=== PATIENT | female | born 1940 | race Caucasian/White ===

== ENCOUNTER 2017-03-23 08:57 | Day surgery (SDC) | payer OTHER ==
[2017-03-19 14:30] LABS: Urine RBC None Seen /hpf (0 - 4)
[2017-03-19 14:47] LABS: Basophils # (auto) 0 uL; Basophils % (auto) 0.5 % (0.0-2.0); Eosinophils # (auto) 0.1 uL; Eosinophils % (auto) 0.8 % (0.0-7.0); Hematocrit 42.1 % (36.0-46.0); Hemoglobin 13.9 g/dL (12.2-16.2); Lymphocytes # (auto) 2.6 uL; Lymphocytes % (auto) 36.6 % (10.0-50.0); Mean Corpuscular Hemoglobin 32.5 pg (28.0-32.0); Mean Corpuscular Hgb Conc. 33.1 g/dL (32.0-36.0); Mean Corpuscular Volume 98.2 fL (80.0-100.0); Mean Platelet Volume 8.8 fL (6.9-10.8); Monocytes # (auto) 0.6 uL; Monocytes % (auto) 8.2 % (0.0-12.0); Neutrophils # (auto) 3.8 uL; Neutrophils % (auto) 53.9 % (37.0-80.0); Nucleated Red Blood Cells % 0.1 %; Platelet Count (auto) 176 10^3/uL (140-450); Red Cell Distribution Width 16.2 % (11.8-14.3); White Blood Cell 7.1 10^3/uL (4.4-10.8)
[2017-03-19 14:56] LABS: Urine Bilirubin Negative (Negative); Urine Blood Negative /uL (Negative); Urine Color Yellow (Yellow); Urine Glucose Normal (Normal); Urine Ketone Negative (Negative); Urine Mucus FEW (None Seen); Urine Nitrite Negative (Negative); Urine Squamous Epithelial Cell FEW /hpf (<5); Urine Urobilinogen Normal (Negative); Urine pH 5.5 (5.0-8.0)
[2017-03-19 15:03] LABS: INR 0.99 (0.9-1.15); Partial Thromboplastin Time 24.6 sec (22.64-33.71); Prothrombin Time 10.8 sec (9.37-12.3)
[2017-03-19 15:05] LABS: BUN/Creatinine Ratio 9.8; Calcium 9.3 mg/dL (8.5-10.1); Potassium 4.4 mmol/L (3.5-5.1)
[~2017-03-23] VITALS: Ht 167.6 cm; Wt 46.3 kg
[~2017-03-23 08:57] MED LIST: ALPR0.254 PO; ASPI-231 PO; ATOR40TA52 PO; CARV6.2551 PO; IBUP200T76 PO; ISOS60TA24 PO; LYSI500T34 OR; NITR0.4S29 SL; PANT40TA2 PO; RANO1000 PO; TRAM50TA2 PO
[2017-03-23] MEDS ORDERED: NOREPINEPHRINE 8 MG/250ML KIT 250 ML IV SCH (10:20)
[2017-03-23] MEDS ORDERED: ePHEDrine SULFATE 50 MG/ML AMP ONE (11:44)
[2017-03-23] MEDS ORDERED: PHENYLEPHRINE HCL 10 MG/ML VL ONE (11:44)
[2017-03-23] MEDS ORDERED: ETOMIDATE (2MG/ML) 20ML VIAL IV ONE (11:44)
[2017-03-23] MEDS ORDERED: fentaNYL CITRATE 100 MCG/2 ML VL ONE (11:44)
[2017-03-23] MEDS ORDERED: SODIUM CHLORIDE LOCK 10 ML ONE ×2 (11:46→11:48)
[2017-03-23] MEDS ORDERED: ceFAZolin 1GM/50ML 50 ML IV ONE (11:47)
[2017-03-23] MEDS ORDERED: NALOXONE HCL 0.4 MG/ML VIAL IV PRN (13:15)
[2017-03-23] MEDS ORDERED: ONDANSETRON HCL 4 MG/2 ML VIAL IV ONE (13:15)
[2017-03-23] MEDS ORDERED: HYDROmorphone HCL 2 MG/ML VL IV PRN (13:15)
[2017-03-23 14:00] VITALS: BP 149/69
== END 2017-03-23 14:10 | disposition home or self-care (01) ==
LOC: SUR 08:57
PROVIDERS: ATTEND Urology
DX: N13.0 Hydronephrosis with ureteropelvic junction obstruction (principal); D69.6 Thrombocytopenia, unspecified; Z88.5 Allergy status to narcotic agent; I10 Essential (primary) hypertension; I42.9 Cardiomyopathy, unspecified; I63.9 Cerebral infarction, unspecified; Z95.1 Presence of aortocoronary bypass graft; Z95.5 Presence of coronary angioplasty implant and graft; F17.210 Nicotine dependence, cigarettes, uncomplicated; Z88.8 Allergy status to other drugs, medicaments and biological substances; F10.99 Alcohol use, unspecified with unspecified alcohol-induced disorder; Z90.49 Acquired absence of other specified parts of digestive tract; Z90.710 Acquired absence of both cervix and uterus
CPT/HCPCS: 36415; 52332; 74000; 76000; 80048; 81001; 85025; 85610; 85730; 86850; 86900; 86901; 87086; C2617; J0690; J2370; J3010; J7030; J7040

== ENCOUNTER 2020-12-24 14:59 | Inpatient (IN) | payer MEDICARE, OTHER ==
[~2020-12-24] VITALS: Ht 165.1 cm; Wt 53.3 kg
[2020-12-24] MEDS ORDERED: SODIUM CHLORIDE 0.9% 1,000 ML IV ONE ×2 (15:30)
[2020-12-24 15:43] LABS: Basophils # (auto) 0 10 ^3/uL (0-0.2); Eosinophils # (auto) 0 10 ^3/uL (0-0.8); Hemoglobin 8.4 g/dL (12.2-16.2); Lymphocytes # (auto) 1.2 10 ^3/uL (0.4-5.4); Lymphocytes % (auto) 5.8 % (10.0-50.0); Mean Corpuscular Hemoglobin 30.5 pg (28.0-32.0)
[2020-12-24 15:45] LABS: Basophils % (auto) 0.2 % (0.0-2.0); Eosinophils % (auto) 0.2 % (0.0-7.0); Hematocrit 25.7 % (36.0-46.0); Mean Corpuscular Hgb Conc. 32.7 g/dL (32.0-36.0); Mean Corpuscular Volume 93.2 fL (80.0-100.0); Monocytes # (auto) 1.8 10 ^3/uL (0-1.3); Monocytes % (auto) 8.8 % (0.0-12.0); Neutrophils # (auto) 17.1 10 ^3/uL (1.6-8.6); Red Blood Cells 2.76 10^6/uL (4.0-5.20); Red Cell Distribution Width 14.8 % (11.8-14.3); White Blood Cell 20.1 10^3/uL (4.4-10.8)
[2020-12-24 16:00] LABS: Alanine Aminotransferase 15 U/L (13-56); Albumin 1.5 g/dL (3.4-5.0); Anion Gap 5 (5-15); Aspartate Aminotransferase 10 U/L (15-37); BUN/Creatinine Ratio 23.5; Blood Urea Nitrogen 58 mg/dL (7-18); Carbon Dioxide 22 mmol/L (21-32); Chloride 107 mmol/L (98-107); GFR African American 24 mL/min; GFR Non-African American 20 mL/min; Glucose 123 mg/dL (74-106); Potassium 4.7 mmol/L (3.5-5.1); Sodium 134 mmol/L (136-145)
[2020-12-24 16:10] LABS: Alkaline Phosphatase 81 U/L (45-117); Bilirubin, Total 0.5 mg/dL (0.2-1.0)
[2020-12-24] MEDS ORDERED: NOREPINEPHRINE 8 MG/250ML KIT 250 ML IV SCH (16:45)
[2020-12-24] MEDS ORDERED: NOREPINEPHRINE 8 MG/250ML KIT 250 ML IV ONE (16:46)
[2020-12-24] MEDS ORDERED: cefTRIAXone 1GM/50ML D5W 50 ML IV ONE (18:00)
[2020-12-24] MEDS ORDERED: MORPHINE SULFATE INJECTION 2 MG/ML SYRG IV PRN ×3 (18:30→22:30)
[2020-12-24] MEDS ORDERED: NITROGLYCERIN 0.4 MG SL TAB SL PRN ×2 (18:30→22:30)
[2020-12-24 19:35] LABS: Lactic Acid w/Reflex 2.1 mmol/L (0.4-2.0)
[2020-12-24] MEDS ORDERED: LACTATED RINGER'S 1,000 ML IV ONE (22:15)
[2020-12-24] MEDS ORDERED: ALBUMIN 25% 100 ML IV ONE (22:15)
[2020-12-24] MEDS ORDERED: ALUM & MAG HYDROX-SIMETH LIQ(MAALOX) 30 ML PO PRN (22:30)
[2020-12-24] MEDS ORDERED: DOCUSATE SOD 100 MG CAP PO PRN (22:30)
[2020-12-24] MEDS ORDERED: NITROGLYCERIN 0.4 MG SL TAB SL SCH (22:30)
[2020-12-24] MEDS ORDERED: METOCLOPRAMIDE HCL 5MG/ml INJ 2ml VIAL IV PRN (22:30)
[2020-12-24] MEDS ORDERED: LORazepam 0.5 MG TAB PO PRN (22:30)
[2020-12-24] MEDS ORDERED: PANTOPRAZOLE 40 MG/10 ML VIAL INJ IV ONE (22:30)
[2020-12-24] MEDS ORDERED: CEFEPIME 1 GM in SODIUM CHL 0.9% 50 ML IV ONE (22:30)
[2020-12-24 23:12] LABS: Magnesium 2.2 mg/dL (1.6-2.6); Phosphorus 3.2 mg/dL (2.5-4.90)
[2020-12-24 23:36] LABS: INR 1.18 (0.9-1.15); Partial Thromboplastin Time 25.4 sec (23.6-33.0)
[2020-12-24] MEDS: SODIUM CHLORIDE 0.9% 1,000 ML IV SCH (23:59)
[2020-12-25 00:07] LABS: Urine Bacteria NONE SEEN /hpf (None Seen); Urine Blood 1+ /uL (Negative); Urine Specific Gravity 1.016 (1.001-1.035); Urine WBC 1375 /hpf (0 - 5); Urine WBC Clumps PRESENT /hpf (None Seen)
[2020-12-25 00:18] LABS: Amphetamine Screen, Urine NEGATIVE (NEGATIVE); Barbiturate Scree,Urine NEGATIVE (NEGATIVE); Benzodiazephine Screen, Urine NEGATIVE (NEGATIVE); Cannabinoid Screen, Urine NEGATIVE (NEGATIVE); Cocaine Screen, Urine NEGATIVE (NEGATIVE); Opiate Scree,Urine NEGATIVE (NEGATIVE); Phencyclidine Screen, Urine NEGATIVE (NEGATIVE)
[2020-12-25] MEDS: hydrALAZINE HCL 10 MG TAB PO SCH ×3 (06:00→23:08)
[2020-12-25] MEDS: ALBUMIN 25% 50 ML IV SCH ×3 (06:16→21:56)
[2020-12-25] MEDS: CEFEPIME 1 GM in SODIUM CHL 0.9% 50 ML IV SCH ×2 (07:41→14:26)
[2020-12-25] MEDS: ALPRAZolam 0.25 MG TAB PO SCH ×3 (08:05→21:59)
[2020-12-25] MEDS: ASPirin 81 mg TAB PO SCH (10:01)
[2020-12-25] MEDS: ISOSORBIDE MONONITRATE ER 60 MG TAB PO SCH (10:02)
[2020-12-25] MEDS: CARVEDILOL 3.125 MG TAB PO SCH ×2 (10:02→21:58)
[2020-12-25] MEDS: FLUoxetine HCL 20 MG CAP PO SCH (10:02)
[2020-12-25] MEDS: PANTOPRAZOLE 40 MG/10 ML VIAL INJ IV SCH (10:03)
[2020-12-25] MEDS ORDERED: OMNIPAQUE ORAL SOLN 500ml 12mg/ml PO ONE (12:53)
[2020-12-25] MEDS: SODIUM CHLORIDE 0.9% 1,000 ML IV SCH (15:38)
[2020-12-25 18:12] VITALS: BP 108/51
[2020-12-25 18:52] VITALS: BP 108/51
[2020-12-25 21:40] LABS: Cholesterol 66 mg/dL (< 200); Triglycerides 56 mg/dL (< 150)
[2020-12-25 21:42] LABS: HDL Cholesterol 26 mg/dL (40-59); LDL Cholesterol 34 mg/dL (< 100)
[2020-12-25 21:53] LABS: Folate (Folic Acid) > 24.00 ng/mL (5.38-24)
[2020-12-25] MEDS: ATORVASTATIN 20 MG TAB PO SCH ×2 (21:55→22:00)
[2020-12-25] MEDS: DOCUSATE SOD 100 MG CAP PO SCH (21:58)
[2020-12-25 22:00] VITALS: BP 116/59
[2020-12-25] MEDS ORDERED: ATORVASTATIN 20 MG TAB PO SCH (22:00)
[2020-12-26] MEDS: SODIUM CHLORIDE 0.9% 1,000 ML IV SCH (04:15)
[2020-12-26 05:00] VITALS: BP 116/54
[2020-12-26] MEDS: ALPRAZolam 0.25 MG TAB PO SCH (05:30)
[2020-12-26] MEDS: hydrALAZINE HCL 10 MG TAB PO SCH (05:30)
[2020-12-26 06:12] LABS: Basophils # (auto) 0 10 ^3/uL (0-0.2); Eosinophils # (auto) 0.1 10 ^3/uL (0-0.8); Eosinophils % (auto) 0.4 % (0.0-7.0); Lymphocytes # (auto) 1.6 10 ^3/uL (0.4-5.4); Monocytes # (auto) 1.7 10 ^3/uL (0-1.3); Red Cell Distribution Width 14.7 % (11.8-14.3)
[2020-12-26 06:15] LABS: Basophils % (auto) 0.2 % (0.0-2.0); Hematocrit 24.1 % (36.0-46.0); Lymphocytes % (auto) 10.1 % (10.0-50.0); Mean Corpuscular Hemoglobin 31.3 pg (28.0-32.0); Mean Corpuscular Hgb Conc. 33.3 g/dL (32.0-36.0); Monocytes % (auto) 10.6 % (0.0-12.0); Neutrophils # (auto) 12.2 10 ^3/uL (1.6-8.6); Neutrophils % (auto) 78.7 % (37.0-80.0); Red Blood Cells 2.57 10^6/uL (4.0-5.20); White Blood Cell 15.5 10^3/uL (4.4-10.8)
[2020-12-26 06:53] LABS: Calcium 8.4 mg/dL (8.5-10.1); Potassium 5.5 mmol/L (3.5-5.1)
[2020-12-26 06:56] LABS: BUN/Creatinine Ratio 22.2
[2020-12-26] MEDS ORDERED: DEXTROSE (50%) 50ML SYRG IV ONE ×2 (08:15→16:30)
[2020-12-26 09:00] VITALS: BP 114/58
[2020-12-26] MEDS ORDERED: cefTRIAXone 1GM/50ML D5W 50 ML IV SCH (09:00)
[2020-12-26] MEDS: PANTOPRAZOLE 40 MG/10 ML VIAL INJ IV SCH (09:55)
[2020-12-26] MEDS: FLUoxetine HCL 20 MG CAP PO SCH (09:59)
[2020-12-26] MEDS: ISOSORBIDE MONONITRATE ER 60 MG TAB PO SCH (09:59)
[2020-12-26] MEDS: ASPirin 81 mg TAB PO SCH (10:00)
[2020-12-26] MEDS: CARVEDILOL 3.125 MG TAB PO SCH (10:00)
[2020-12-26] MEDS: DOCUSATE SOD 100 MG CAP PO SCH ×2 (10:00→20:27)
[2020-12-26] MEDS: ACCU-CHEK COMFORT CURVE STRIP VI SCH ×4 (10:01→21:25)
[2020-12-26] MEDS ORDERED: CALCIUM GLUC 1,000mg/50ml-NS 50 ML IV ONE (10:30)
[2020-12-26] MEDS ORDERED: ERTAPENEM SOD INJ 0.5 GM in SODIUM CHL 0.9% 50 ML IV ONE (10:30)
[2020-12-26] MEDS ORDERED: METOCLOPRAMIDE HCL 5MG/ml INJ 2ml VIAL IV PRN (10:30)
[2020-12-26] MEDS: D5W/SOD CHL 0.45% 1,000 ML IV SCH ×2 (12:18→23:50)
[2020-12-26 13:00] VITALS: BP 115/51
[2020-12-26] MEDS ORDERED: CEFEPIME 2 GM in SODIUM CHL 0.9% 50 ML IV SCH (14:00)
[2020-12-26 16:05] LABS: BUN/Creatinine Ratio 18.9
[2020-12-26 16:12] LABS: Potassium 5.7 mmol/L (3.5-5.1)
[2020-12-26] MEDS ORDERED: SODIUM BICARBONATE 8.4 % INJ 50ML VIAL IV ONE (16:30)
[2020-12-26] MEDS ORDERED: SODIUM ZIRCONIUM CYCL 10 GM PAK PO ONE (16:30)
[2020-12-26] MEDS ORDERED: InsuLIN REG 1unit/0.01ml Soln (100units/ml) IV ONE (16:30)
[2020-12-26 17:00] VITALS: BP 118/76
[2020-12-26] MEDS: ACETAMINOPHEN 325 MG TAB PO PRN (18:57)
[2020-12-26] MEDS: ATORVASTATIN 20 MG TAB PO SCH (21:25)
[2020-12-26 22:00] VITALS: BP 114/58
[2020-12-26] MEDS: SODIUM ZIRCONIUM CYCL 10 GM PAK PO SCH (23:31)
[2020-12-27] MEDS: ACCU-CHEK COMFORT CURVE STRIP VI SCH ×6 (02:10→21:45)
[2020-12-27 05:00] VITALS: BP 142/56
[2020-12-27] MEDS: SODIUM ZIRCONIUM CYCL 10 GM PAK PO SCH (05:46)
[2020-12-27 06:25] LABS: Basophils # (auto) 0 10 ^3/uL (0-0.2); Basophils % (auto) 0.2 % (0.0-2.0); Eosinophils # (auto) 0.1 10 ^3/uL (0-0.8); Eosinophils % (auto) 0.4 % (0.0-7.0); Hematocrit 26.8 % (36.0-46.0); Hemoglobin 8.8 g/dL (12.2-16.2); Lymphocytes # (auto) 1.6 10 ^3/uL (0.4-5.4); Mean Corpuscular Hemoglobin 30.8 pg (28.0-32.0); Mean Corpuscular Hgb Conc. 32.8 g/dL (32.0-36.0); Mean Corpuscular Volume 93.9 fL (80.0-100.0); Monocytes # (auto) 1.6 10 ^3/uL (0-1.3); Monocytes % (auto) 12.1 % (0.0-12.0); Neutrophils # (auto) 10.1 10 ^3/uL (1.6-8.6); Neutrophils % (auto) 75.3 % (37.0-80.0); Red Blood Cells 2.86 10^6/uL (4.0-5.20); White Blood Cell 13.4 10^3/uL (4.4-10.8)
[2020-12-27 06:59] LABS: Potassium 4.5 mmol/L (3.5-5.1)
[2020-12-27 07:07] LABS: Albumin 2.2 g/dL (3.4-5.0); BUN/Creatinine Ratio 17.3; Bilirubin, Total 0.4 mg/dL (0.2-1.0); Calcium 8.8 mg/dL (8.5-10.1); Total Protein 6.5 g/dL (6.4-8.2)
[2020-12-27] MEDS: ASPirin 81 mg TAB PO SCH (10:00)
[2020-12-27] MEDS: DOCUSATE SOD 100 MG CAP PO SCH ×3 (10:00→21:46)
[2020-12-27] MEDS: PANTOPRAZOLE 40 MG/10 ML VIAL INJ IV SCH (10:00)
[2020-12-27] MEDS: ERTAPENEM SOD INJ 0.5 GM in SODIUM CHL 0.9% 50 ML IV SCH (10:00)
[2020-12-27] MEDS ORDERED: FUROSEMIDE 40 MG/4 ML VIAL IV ONE ×2 (10:15)
[2020-12-27] MEDS ORDERED: GASTROGRAFIN 30 ML SOL ONE (10:22)
[2020-12-27] MEDS ORDERED: FUROSEMIDE 40 MG/4 ML VIAL ONE (10:41)
[2020-12-27] MEDS: D5W/SOD CHL 0.45% 1,000 ML IV SCH (12:42)
[2020-12-27] MEDS ORDERED: LACTULOSE 20Gm/30ML SOLN PO ONE (13:00)
[2020-12-27] MEDS: Ensure HIGH Protein Chocolate 8oz Bottle PO SCH (18:00)
[2020-12-27] MEDS: LACTULOSE 20Gm/30ML SOLN PO SCH ×2 (21:41→21:46)
[2020-12-27 21:51] VITALS: BP 135/66
[2020-12-28] MEDS: ACCU-CHEK COMFORT CURVE STRIP VI SCH ×3 (02:49→11:00)
[2020-12-28] MEDS: D5W/SOD CHL 0.45% 1,000 ML IV SCH (02:49)
[2020-12-28] MEDS: ACETAMINOPHEN 325 MG TAB PO PRN (05:10)
[2020-12-28 05:44] VITALS: BP 151/82
[2020-12-28 06:39] LABS: Basophils # (auto) 0 10 ^3/uL (0-0.2); Basophils % (auto) 0.3 % (0.0-2.0); Eosinophils # (auto) 0.1 10 ^3/uL (0-0.8); Eosinophils % (auto) 0.5 % (0.0-7.0); Hemoglobin 8.6 g/dL (12.2-16.2); Lymphocytes # (auto) 2.1 10 ^3/uL (0.4-5.4); Lymphocytes % (auto) 17.1 % (10.0-50.0); Mean Corpuscular Hemoglobin 30.4 pg (28.0-32.0); Mean Corpuscular Volume 92.2 fL (80.0-100.0); Monocytes # (auto) 1.8 10 ^3/uL (0-1.3); Monocytes % (auto) 14.8 % (0.0-12.0); Neutrophils # (auto) 8.3 10 ^3/uL (1.6-8.6); Neutrophils % (auto) 67.3 % (37.0-80.0); Red Blood Cells 2.82 10^6/uL (4.0-5.20); Red Cell Distribution Width 14.7 % (11.8-14.3); White Blood Cell 12.3 10^3/uL (4.4-10.8)
[2020-12-28 06:59] LABS: Calcium 8.5 mg/dL (8.5-10.1); Potassium 3.7 mmol/L (3.5-5.1)
[2020-12-28] MEDS: Ensure HIGH Protein Chocolate 8oz Bottle PO SCH (08:02)
[2020-12-28 09:00] VITALS: BP 133/67
[2020-12-28] MEDS: LACTULOSE 20Gm/30ML SOLN PO SCH (10:00)
[2020-12-28] MEDS: DOCUSATE SOD 100 MG CAP PO SCH (10:00)
[2020-12-28] MEDS: ERTAPENEM SOD INJ 0.5 GM in SODIUM CHL 0.9% 50 ML IV SCH (10:00)
[2020-12-28] MEDS: PANTOPRAZOLE 40 MG/10 ML VIAL INJ IV SCH (10:41)
[2020-12-28] MEDS: ASPirin 81 mg TAB PO SCH (10:41)
[2020-12-28 13:00] VITALS: BP 121/72
[2020-12-28 17:00] VITALS: BP 129/63
[2020-12-28] MEDS: Nepro With Carbsteady ButterPecan 8oz Carton PO SCH (17:42)
[2020-12-28 22:00] VITALS: BP 106/61
[2020-12-29] MEDS: ACETAMINOPHEN 325 MG TAB PO PRN (00:41)
[2020-12-29] MEDS: MORPHINE SULFATE INJECTION 2 MG/ML SYRG IV PRN (02:26)
[2020-12-29 05:23] VITALS: BP 107/48
[2020-12-29] MEDS: Nepro With Carbsteady ButterPecan 8oz Carton PO SCH ×2 (08:15→18:00)
[2020-12-29 09:00] VITALS: BP 109/59
[2020-12-29] MEDS ORDERED: MAGNESIUM CITRATE SOLUTION 300 ML BTL PO ONE (09:00)
[2020-12-29] MEDS: ASPirin 81 mg TAB PO SCH (09:47)
[2020-12-29] MEDS: ERTAPENEM SOD INJ 0.5 GM in SODIUM CHL 0.9% 50 ML IV SCH (09:47)
[2020-12-29 13:00] VITALS: BP 105/69
[2020-12-29] MEDS ORDERED: SODIUM CHLORIDE 0.9% 1,000 ML IV ONE (14:15)
[2020-12-29 17:00] VITALS: BP 124/76
[2020-12-29 22:00] VITALS: BP 128/90
[2020-12-29] MEDS: HYDROcodone-ACET 5/325MG TAB PO PRN (22:27)
[2020-12-30 05:00] VITALS: BP 132/65
[2020-12-30 07:10] LABS: Basophils # (auto) 0.1 10 ^3/uL (0-0.2); Basophils % (auto) 0.5 % (0.0-2.0); Eosinophils # (auto) 0.1 10 ^3/uL (0-0.8); Eosinophils % (auto) 1.2 % (0.0-7.0); Hematocrit 26.4 % (36.0-46.0); Hemoglobin 8.8 g/dL (12.2-16.2); Lymphocytes # (auto) 2.1 10 ^3/uL (0.4-5.4); Lymphocytes % (auto) 18.6 % (10.0-50.0); Mean Corpuscular Hemoglobin 30.9 pg (28.0-32.0); Mean Corpuscular Hgb Conc. 33.4 g/dL (32.0-36.0); Mean Corpuscular Volume 92.5 fL (80.0-100.0); Monocytes # (auto) 1.4 10 ^3/uL (0-1.3); Monocytes % (auto) 12.6 % (0.0-12.0); Neutrophils # (auto) 7.7 10 ^3/uL (1.6-8.6); Neutrophils % (auto) 67.1 % (37.0-80.0); Red Blood Cells 2.85 10^6/uL (4.0-5.20); Red Cell Distribution Width 14.9 % (11.8-14.3); White Blood Cell 11.5 10^3/uL (4.4-10.8)
[2020-12-30 07:23] LABS: Calcium 8.7 mg/dL (8.5-10.1); Magnesium 1.7 mg/dL (1.6-2.6); Potassium 4.4 mmol/L (3.5-5.1)
[2020-12-30 07:26] LABS: BUN/Creatinine Ratio 15.4
[2020-12-30] MEDS: Nepro With Carbsteady ButterPecan 8oz Carton PO SCH ×2 (08:00→18:00)
[2020-12-30] MEDS: ASPirin 81 mg TAB PO SCH (08:47)
[2020-12-30] MEDS: HYDROcodone-ACET 5/325MG TAB PO PRN (08:48)
[2020-12-30 09:00] VITALS: BP 132/58
[2020-12-30] MEDS ORDERED: GASTROGRAFIN 120 ML SOL ONE ×2 (09:39→10:32)
[2020-12-30] MEDS: ERTAPENEM SOD INJ 0.5 GM in SODIUM CHL 0.9% 50 ML IV SCH (09:47)
[2020-12-30 13:00] VITALS: BP 102/52
[2020-12-30 17:00] VITALS: BP 97/38
[2020-12-30 22:00] VITALS: BP 123/65
[2020-12-31] VITALS (10 sets, daily range): BP systolic 102–167; BP diastolic 43–93
[2020-12-31] MEDS: Nepro With Carbsteady ButterPecan 8oz Carton PO SCH ×2 (08:00→18:44)
[2020-12-31] MEDS: ASPirin 81 mg TAB PO SCH (10:02)
[2020-12-31] MEDS ORDERED: MIDAZOLAM HCL 2MG/2ML 2ml VIAL (1mg/ml) ONE (12:34)
[2020-12-31] MEDS ORDERED: fentaNYL CITRATE 100 MCG/2 ML VL ONE (12:34)
[2020-12-31] MEDS ORDERED: LIDOCAINE 2%HCL (LOCAL ANESTH.) INJ 20ML MDV ONE (12:50)
[2020-12-31] MEDS ORDERED: IODIXANOL 320MG/ML 100ML BTL IV ONE (12:59)
[2020-12-31] MEDS: MORPHINE SULFATE INJECTION 2 MG/ML SYRG IV PRN (14:47)
[2020-12-31] MEDS: ERTAPENEM SOD INJ 0.5 GM in SODIUM CHL 0.9% 50 ML IV SCH (16:44)
[2020-12-31] MEDS ORDERED: SODIUM CHLORIDE 0.9% 1,000 ML IV SCH (23:30)
[2021-01-01 05:00] VITALS: BP 110/48
[2021-01-01 06:36] LABS: Hematocrit 23.3 % (36.0-46.0); Mean Corpuscular Hemoglobin 31.8 pg (28.0-32.0); Mean Corpuscular Hgb Conc. 34.3 g/dL (32.0-36.0); Mean Corpuscular Volume 92.7 fL (80.0-100.0); Red Blood Cells 2.51 10^6/uL (4.0-5.20); Red Cell Distribution Width 14.5 % (11.8-14.3)
[2021-01-01 06:58] LABS: BUN/Creatinine Ratio 14.6; Calcium 8.2 mg/dL (8.5-10.1); Potassium 4.4 mmol/L (3.5-5.1); White Blood Cell 36.3 10^3/uL (4.4-10.8)
[2021-01-01 07:00] LABS: Basophils % (manual) 0 (0.0-2.0); Blast Cells 0; Eosinophils % (manual) 0 (0-7); Myelocytes % 0; Promyelocytes % 0; Reactive Lymphocytes 0
[2021-01-01 08:06] LABS: Band Neutrophils % (manual) 9; Lymphocytes % (manual) 5 (10.0-50.0); Metamyelocytes % 2; Monocytes % (manual) 5 (0-12)
[2021-01-01 09:00] VITALS: BP 90/52
[2021-01-01] MEDS: Nepro With Carbsteady ButterPecan 8oz Carton PO SCH ×2 (09:35→18:00)
[2021-01-01] MEDS: ERTAPENEM SOD INJ 0.5 GM in SODIUM CHL 0.9% 50 ML IV SCH (09:39)
[2021-01-01] MEDS: ASPirin 81 mg TAB PO SCH (09:39)
[2021-01-01] MEDS ORDERED: SODIUM CHLORIDE 0.9% 1,000 ML IV ONE (11:45)
[2021-01-01] MEDS ORDERED: MEROPENEM 1GM IVPB 100 ML IV ONE (11:45)
[2021-01-01 13:00] VITALS: BP 85/42
[2021-01-01] MEDS: ACETAMINOPHEN 325 MG TAB PO PRN ×2 (13:54→21:14)
[2021-01-01] MEDS ORDERED: MAGNESIUM CITRATE SOLUTION 300 ML BTL PO ONE (15:45)
[2021-01-01] MEDS ORDERED: GOLYTELY 4L KIT PO ONE (16:00)
[2021-01-01 17:00] VITALS: BP 91/41
[2021-01-01] MEDS: SODIUM CHLORIDE 0.9% 1,000 ML IV SCH (17:00)
[2021-01-01 22:00] VITALS: BP 93/44
[2021-01-01] MEDS ORDERED: MEROPENEM 500MG IVPB 50 ML IV SCH (22:00)
[2021-01-01 23:00] VITALS: BP 101/37
[2021-01-01] MEDS: MORPHINE SULFATE INJECTION 2 MG/ML SYRG IV PRN (23:09)
[2021-01-02] MEDS: SODIUM CHLORIDE 0.9% 1,000 ML IV SCH ×3 (01:59→17:45)
[2021-01-02 05:00] VITALS: BP 99/47
[2021-01-02] MEDS: ACETAMINOPHEN 325 MG TAB PO PRN (05:04)
[2021-01-02 05:25] LABS: Basophils # (auto) 0.1 10 ^3/uL (0-0.2); Hemoglobin 7.1 g/dL (12.2-16.2); Monocytes % (auto) 6.5 % (0.0-12.0)
[2021-01-02 05:29] LABS: Albumin 1.7 g/dL (3.4-5.0); Basophils % (auto) 0.3 % (0.0-2.0); Calcium 8.1 mg/dL (8.5-10.1); Eosinophils # (auto) 0.2 10 ^3/uL (0-0.8); Eosinophils % (auto) 0.8 % (0.0-7.0); Hematocrit 20.7 % (36.0-46.0); Lymphocytes # (auto) 2.7 10 ^3/uL (0.4-5.4); Lymphocytes % (auto) 12.7 % (10.0-50.0); Mean Corpuscular Hemoglobin 31.2 pg (28.0-32.0); Mean Corpuscular Hgb Conc. 34.1 g/dL (32.0-36.0); Mean Corpuscular Volume 91.6 fL (80.0-100.0); Monocytes # (auto) 1.4 10 ^3/uL (0-1.3); Neutrophils # (auto) 16.7 10 ^3/uL (1.6-8.6); Neutrophils % (auto) 79.7 % (37.0-80.0); Potassium 3.8 mmol/L (3.5-5.1); Red Blood Cells 2.27 10^6/uL (4.0-5.20); Red Cell Distribution Width 14.5 % (11.8-14.3)
[2021-01-02 05:33] LABS: BUN/Creatinine Ratio 16.8; Bilirubin, Total 0.2 mg/dL (0.2-1.0); Total Protein 5.5 g/dL (6.4-8.2)
[2021-01-02] MEDS ORDERED: FLEET ENEMA(ADULT) 135 ML PR ONE (06:00)
[2021-01-02] MEDS: Nepro With Carbsteady ButterPecan 8oz Carton PO SCH ×2 (08:00→18:00)
[2021-01-02] MEDS: MEROPENEM 1GM IVPB 100 ML IV SCH ×2 (08:22→23:10)
[2021-01-02] MEDS: ASPirin 81 mg TAB PO SCH (08:23)
[2021-01-02 09:00] VITALS: BP 117/50
[2021-01-02 13:00] VITALS: BP 149/69
[2021-01-02] MEDS ORDERED: GOLYTELY 4L KIT PO ONE (16:00)
[2021-01-02 17:00] VITALS: BP 141/60
[2021-01-02] MEDS: RANOLAZINE ER 500 MG TAB PO SCH (23:11)
[2021-01-02 23:12] VITALS: BP 126/47
[2021-01-03] MEDS: MORPHINE SULFATE INJECTION 2 MG/ML SYRG IV PRN (00:16)
[2021-01-03] MEDS: SODIUM CHLORIDE 0.9% 1,000 ML IV SCH ×2 (03:50→14:50)
[2021-01-03 05:07] VITALS: BP 123/58
[2021-01-03 05:46] LABS: Basophils # (auto) 0 10 ^3/uL (0-0.2); Eosinophils # (auto) 0.1 10 ^3/uL (0-0.8); Hemoglobin 7.7 g/dL (12.2-16.2); Neutrophils # (auto) 9.9 10 ^3/uL (1.6-8.6); White Blood Cell 13.2 10^3/uL (4.4-10.8)
[2021-01-03 05:48] LABS: Basophils % (auto) 0.2 % (0.0-2.0); Eosinophils % (auto) 0.9 % (0.0-7.0); Hematocrit 22.7 % (36.0-46.0); Lymphocytes # (auto) 2.1 10 ^3/uL (0.4-5.4); Lymphocytes % (auto) 16.2 % (10.0-50.0); Mean Corpuscular Hemoglobin 31.6 pg (28.0-32.0); Mean Corpuscular Hgb Conc. 33.8 g/dL (32.0-36.0); Mean Corpuscular Volume 93.6 fL (80.0-100.0); Monocytes % (auto) 7.7 % (0.0-12.0); Nucleated Red Blood Cells % 0.1 %; Red Blood Cells 2.43 10^6/uL (4.0-5.20); Red Cell Distribution Width 14.3 % (11.8-14.3)
[2021-01-03] MEDS ORDERED: MAGNESIUM CITRATE SOLUTION 300 ML BTL PO ONE (06:00)
[2021-01-03] MEDS ORDERED: GOLYTELY 4L KIT PO ONE (06:00)
[2021-01-03 08:00] VITALS: BP 128/54
[2021-01-03] MEDS: Nepro With Carbsteady ButterPecan 8oz Carton PO SCH ×2 (08:00→18:00)
[2021-01-03 09:58] LABS: Potassium 3.8 mmol/L (3.5-5.1)
[2021-01-03] MEDS: ASPirin 81 mg TAB PO SCH (10:00)
[2021-01-03] MEDS: RANOLAZINE ER 500 MG TAB PO SCH ×2 (10:24→22:11)
[2021-01-03] MEDS: MEROPENEM 1GM IVPB 100 ML IV SCH ×2 (10:24→22:11)
[2021-01-03 12:00] VITALS: BP 108/46
[2021-01-03] MEDS ORDERED: fentaNYL CITRATE 100 MCG/2 ML VL ONE (15:22)
[2021-01-03] MEDS ORDERED: PROPOFOL 10 MG/ML 20 ML IV ONE (15:23)
[2021-01-03] MEDS ORDERED: MIDAZOLAM HCL 2MG/2ML 2ml VIAL (1mg/ml) ONE (15:23)
[2021-01-03] MEDS ORDERED: LIDOCAINE 2% (LOCAL ANESTH.) PF 5ml SDV ONE (15:24)
[2021-01-03] MEDS ORDERED: KETAMINE HCL 0 ML ONE (15:52)
[2021-01-03] MEDS ORDERED: ONDANSETRON HCL 4 MG/2 ML VIAL IV PRN (16:30)
[2021-01-03 22:31] VITALS: BP 99/42
[2021-01-04] VITALS (9 sets, daily range): BP systolic 85–137; BP diastolic 26–71
[2021-01-04] MEDS: SODIUM CHLORIDE 0.9% 1,000 ML IV SCH ×3 (04:22→19:54)
[2021-01-04 06:00] LABS: Basophils # (auto) 0 10 ^3/uL (0-0.2); Basophils % (auto) 0.3 % (0.0-2.0); Eosinophils # (auto) 0.1 10 ^3/uL (0-0.8); Mean Corpuscular Hemoglobin 31.4 pg (28.0-32.0); Mean Corpuscular Hgb Conc. 34.2 g/dL (32.0-36.0)
[2021-01-04 06:04] LABS: Eosinophils % (auto) 1.4 % (0.0-7.0); Hematocrit 19.8 % (36.0-46.0); Lymphocytes # (auto) 2.2 10 ^3/uL (0.4-5.4); Lymphocytes % (auto) 23.2 % (10.0-50.0); Mean Corpuscular Volume 91.7 fL (80.0-100.0); Monocytes % (auto) 10.6 % (0.0-12.0); Neutrophils # (auto) 6.1 10 ^3/uL (1.6-8.6); Neutrophils % (auto) 64.5 % (37.0-80.0); Red Blood Cells 2.16 10^6/uL (4.0-5.20); Red Cell Distribution Width 14.5 % (11.8-14.3); White Blood Cell 9.4 10^3/uL (4.4-10.8)
[2021-01-04 06:21] LABS: BUN/Creatinine Ratio 11.4; Calcium 7.4 mg/dL (8.5-10.1); Potassium 3.5 mmol/L (3.5-5.1)
[2021-01-04 06:32] LABS: Hemoglobin 6.8 g/dL (12.2-16.2)
[2021-01-04] MEDS: Nepro With Carbsteady ButterPecan 8oz Carton PO SCH ×2 (08:40→18:38)
[2021-01-04] MEDS: ASPirin 81 mg TAB PO SCH (10:08)
[2021-01-04] MEDS: MEROPENEM 1GM IVPB 100 ML IV SCH ×2 (10:08→21:31)
[2021-01-04] MEDS: RANOLAZINE ER 500 MG TAB PO SCH ×2 (10:09→21:04)
[2021-01-04 15:37] LABS: Hematocrit 27.9 % (36.0-46.0); Hemoglobin 9.2 g/dL (12.2-16.2)
[2021-01-05] MEDS: SODIUM CHLORIDE 0.9% 1,000 ML IV SCH ×2 (03:09→17:16)
[2021-01-05 05:00] VITALS: BP 133/63
[2021-01-05 07:38] LABS: Basophils # (auto) 0 10 ^3/uL (0-0.2); Basophils % (auto) 0.2 % (0.0-2.0); Eosinophils # (auto) 0.2 10 ^3/uL (0-0.8); Eosinophils % (auto) 1.6 % (0.0-7.0); Hematocrit 27.9 % (36.0-46.0); Hemoglobin 9.2 g/dL (12.2-16.2); Lymphocytes # (auto) 2.9 10 ^3/uL (0.4-5.4); Lymphocytes % (auto) 25.9 % (10.0-50.0); Mean Corpuscular Hemoglobin 29.8 pg (28.0-32.0); Mean Corpuscular Hgb Conc. 32.9 g/dL (32.0-36.0); Mean Corpuscular Volume 90.8 fL (80.0-100.0); Monocytes # (auto) 1.2 10 ^3/uL (0-1.3); Monocytes % (auto) 11.3 % (0.0-12.0); Neutrophils # (auto) 6.7 10 ^3/uL (1.6-8.6); Nucleated Red Blood Cells % 0.1 %; Red Blood Cells 3.07 10^6/uL (4.0-5.20); Red Cell Distribution Width 14.9 % (11.8-14.3); White Blood Cell 11.1 10^3/uL (4.4-10.8)
[2021-01-05 09:00] VITALS: BP 136/61
[2021-01-05] MEDS: Nepro With Carbsteady ButterPecan 8oz Carton PO SCH ×2 (09:05→18:08)
[2021-01-05] MEDS: ASPirin 81 mg TAB PO SCH (09:06)
[2021-01-05] MEDS: RANOLAZINE ER 500 MG TAB PO SCH ×2 (09:06→21:09)
[2021-01-05] MEDS: MEROPENEM 1GM IVPB 100 ML IV SCH ×2 (09:06→22:36)
[2021-01-05 11:02] LABS: Urine Bacteria None Seen /hpf (None Seen); Urine WBC None Seen /hpf (0 - 5)
[2021-01-05 13:00] VITALS: BP 142/71
[2021-01-05 17:00] VITALS: BP 127/65
[2021-01-05 22:00] VITALS: BP 133/46
[2021-01-06] MEDS: SODIUM CHLORIDE 0.9% 1,000 ML IV SCH ×3 (01:45→21:31)
[2021-01-06 05:00] VITALS: BP 165/75
[2021-01-06 05:21] LABS: Basophils # (auto) 0 10 ^3/uL (0-0.2); Basophils % (auto) 0.4 % (0.0-2.0); Eosinophils # (auto) 0.2 10 ^3/uL (0-0.8); Eosinophils % (auto) 1.7 % (0.0-7.0); Hematocrit 30.4 % (36.0-46.0); Hemoglobin 10.3 g/dL (12.2-16.2); Lymphocytes # (auto) 2.5 10 ^3/uL (0.4-5.4); Lymphocytes % (auto) 23.7 % (10.0-50.0); Mean Corpuscular Hemoglobin 30.7 pg (28.0-32.0); Mean Corpuscular Hgb Conc. 33.9 g/dL (32.0-36.0); Mean Corpuscular Volume 90.7 fL (80.0-100.0); Monocytes # (auto) 1.1 10 ^3/uL (0-1.3); Monocytes % (auto) 10.4 % (0.0-12.0); Neutrophils # (auto) 6.7 10 ^3/uL (1.6-8.6); Neutrophils % (auto) 63.8 % (37.0-80.0); Red Blood Cells 3.36 10^6/uL (4.0-5.20); Red Cell Distribution Width 15.2 % (11.8-14.3); White Blood Cell 10.5 10^3/uL (4.4-10.8)
[2021-01-06] MEDS: ACETAMINOPHEN 325 MG TAB PO PRN (05:42)
[2021-01-06 05:47] LABS: Calcium 8.3 mg/dL (8.5-10.1); Potassium 3.7 mmol/L (3.5-5.1)
[2021-01-06 05:50] LABS: BUN/Creatinine Ratio 6.4
[2021-01-06] MEDS: Nepro With Carbsteady ButterPecan 8oz Carton PO SCH ×2 (08:00→18:00)
[2021-01-06] MEDS: ASPirin 81 mg TAB PO SCH (09:18)
[2021-01-06] MEDS: RANOLAZINE ER 500 MG TAB PO SCH ×2 (09:18→21:29)
[2021-01-06] MEDS: MEROPENEM 1GM IVPB 100 ML IV SCH ×2 (09:18→21:31)
[2021-01-06] MEDS ORDERED: ENOXAPARIN SOD 30 MG/0.3 ML SYRINGE SC ONE (14:15)
[2021-01-06 23:40] VITALS: BP 136/67
[2021-01-07] MEDS: ACETAMINOPHEN 325 MG TAB PO PRN (04:50)
[2021-01-07] MEDS: SODIUM CHLORIDE 0.9% 1,000 ML IV SCH (04:51)
[2021-01-07 05:43] LABS: Basophils # (auto) 0.1 10 ^3/uL (0-0.2); Basophils % (auto) 0.4 % (0.0-2.0); Eosinophils # (auto) 0.2 10 ^3/uL (0-0.8); Eosinophils % (auto) 1.5 % (0.0-7.0); Hematocrit 29.4 % (36.0-46.0); Hemoglobin 9.7 g/dL (12.2-16.2); Lymphocytes # (auto) 2.1 10 ^3/uL (0.4-5.4); Lymphocytes % (auto) 17.9 % (10.0-50.0); Mean Corpuscular Hemoglobin 30.4 pg (28.0-32.0); Monocytes # (auto) 1.2 10 ^3/uL (0-1.3); Monocytes % (auto) 10.3 % (0.0-12.0); Neutrophils # (auto) 8.1 10 ^3/uL (1.6-8.6); Neutrophils % (auto) 69.9 % (37.0-80.0); Nucleated Red Blood Cells % 0.1 %; Red Blood Cells 3.19 10^6/uL (4.0-5.20); Red Cell Distribution Width 14.9 % (11.8-14.3); White Blood Cell 11.6 10^3/uL (4.4-10.8)
[2021-01-07 06:29] VITALS: BP 149/75
[2021-01-07] MEDS: Nepro With Carbsteady ButterPecan 8oz Carton PO SCH ×2 (07:52→18:00)
[2021-01-07 09:00] VITALS: BP 139/75
[2021-01-07] MEDS: ASPirin 81 mg TAB PO SCH (09:28)
[2021-01-07] MEDS: MEROPENEM 1GM IVPB 100 ML IV SCH ×2 (09:29→21:54)
[2021-01-07] MEDS: ENOXAPARIN SOD 30 MG/0.3 ML SYRINGE SC SCH (09:29)
[2021-01-07] MEDS: RANOLAZINE ER 500 MG TAB PO SCH ×2 (11:52→21:54)
[2021-01-07 12:00] VITALS: BP 142/83
[2021-01-07 17:00] VITALS: BP 118/83
[2021-01-07 22:00] VITALS: BP 130/74
[2021-01-08 05:00] VITALS: BP 144/86
[2021-01-08] MEDS: Nepro With Carbsteady ButterPecan 8oz Carton PO SCH (08:00)
[2021-01-08] MEDS: ASPirin 81 mg TAB PO SCH (09:22)
[2021-01-08] MEDS: MEROPENEM 1GM IVPB 100 ML IV SCH (09:22)
[2021-01-08] MEDS: RANOLAZINE ER 500 MG TAB PO SCH (09:22)
[2021-01-08] MEDS: ENOXAPARIN SOD 30 MG/0.3 ML SYRINGE SC SCH (09:22)
[2021-01-08 11:37] VITALS: BP 156/78
== END 2021-01-08 16:12 | disposition home health service (06) | DRG 871 ==
LOC: ER 14:59 → EDBD 14:59 → TELE 18:22 → TELE-WESTW 12-25 18:12 → WEST WING 12-29 11:41 → TELE-WESTW 12-31 16:03
PROVIDERS: ADMIT Hospitalist; ATTEND Internal Medicine
PROC: 05HC33Z Insertion of Infusion Device into Left Basilic Vein, Percutaneous Approach (ICD-10-PCS; 2020-12-26)
PROC: B54NZZA Ultrasonography of Left Upper Extremity Veins, Guidance (ICD-10-PCS; 2020-12-26)
PROC: 0T9030Z Drainage of Right Kidney with Drainage Device, Percutaneous Approach (ICD-10-PCS; 2020-12-31)
PROC: BT41ZZZ Ultrasonography of Right Kidney (ICD-10-PCS; 2020-12-31)
PROC: BT1DYZZ Fluoroscopy of Right Kidney, Ureter and Bladder using Other Contrast (ICD-10-PCS; 2020-12-31)
PROC: 0TP9XDZ Removal of Intraluminal Device from Ureter, External Approach (ICD-10-PCS; 2020-12-31)
PROC: 0DJD8ZZ Inspection of Lower Intestinal Tract, Via Natural or Artificial Opening Endoscopic (ICD-10-PCS; principal; 2021-01-03 15:25)
PROC: 30233N1 Transfusion of Nonautologous Red Blood Cells into Peripheral Vein, Percutaneous Approach (ICD-10-PCS; 2021-01-04)
DX: A41.9 Sepsis, unspecified organism (principal); N17.0 Acute kidney failure with tubular necrosis; G93.41 Metabolic encephalopathy; R64 Cachexia; N18.4 Chronic kidney disease, stage 4 (severe); N13.6 Pyonephrosis; Z68.1 Body mass index [BMI] 19.9 or less, adult; E44.0 Moderate protein-calorie malnutrition; T83.012A Breakdown (mechanical) of nephrostomy catheter, initial encounter; G30.9 Alzheimer's disease, unspecified; F02.80 Dementia in other diseases classified elsewhere, unspecified severity, without behavioral disturbance, psychotic disturbance, mood disturbance, and anxiety; F01.50 Vascular dementia, unspecified severity, without behavioral disturbance, psychotic disturbance, mood disturbance, and anxiety; R62.7 Adult failure to thrive; D64.9 Anemia, unspecified; K21.9 Gastro-esophageal reflux disease without esophagitis; I25.5 Ischemic cardiomyopathy; E16.2 Hypoglycemia, unspecified; E86.0 Dehydration; N95.2 Postmenopausal atrophic vaginitis; E78.5 Hyperlipidemia, unspecified; F32.9 Major depressive disorder, single episode, unspecified; I12.9 Hypertensive chronic kidney disease with stage 1 through stage 4 chronic kidney disease, or unspecified chronic kidney disease; I25.10 Atherosclerotic heart disease of native coronary artery without angina pectoris; K64.8 Other hemorrhoids; E87.5 Hyperkalemia; Y83.8 Other surgical procedures as the cause of abnormal reaction of the patient, or of later complication, without mention of misadventure at the time of the procedure; Z20.822 Contact with and (suspected) exposure to COVID-19; K57.30 Diverticulosis of large intestine without perforation or abscess without bleeding; M62.89 Other specified disorders of muscle; R56.9 Unspecified convulsions; Z79.82 Long term (current) use of aspirin; Z79.899 Other long term (current) drug therapy; Z81.8 Family history of other mental and behavioral disorders; Y92.89 Other specified places as the place of occurrence of the external cause; Z93.6 Other artificial openings of urinary tract status; Z95.810 Presence of automatic (implantable) cardiac defibrillator
CPT/HCPCS: 36415; 45378; 50432; 70450; 71045; 74176; 74270; 74425; 76775; 76830; 76856; 76942; 78707; 80048; 80053; 80061; 80307; 81001; 81015; 82378; 82565; 82607; 82746; 82962; 83036; 83605; 83735; 83880; 84100; 84132; 84439; 84443; 84484; 85007; 85014; 85018; 85025; 85027; 85610; 85730; 86850; 86900; 86901; 86920; 87040; 87086; 87426; 93005; 93306; 93886; 95819; 96361; 96365; 97110; 97116; 97163; 97530; 99291; C9113; G0378; J0696; J1335; J1815; J2001; J2185; J2250; J2704; P9047; Q9967